=== PATIENT | male | born 1995 | race African-American/Black ===

== ENCOUNTER 2016-12-18 20:39 | Emergency (ER) | payer MEDICAID | END 2016-12-18 21:35 | disposition home or self-care (01) | LOC: CED 20:39 → CFTX 20:39 | DX: J02.0 Streptococcal pharyngitis (principal) | CPT/HCPCS: 87880; 96372; 99283; J0561 ==

== ENCOUNTER 2016-12-22 00:17 | Emergency (ER) | payer MEDICAID ==
[~2016-12-22] VITALS: Ht 177.8 cm; Wt 72.6 kg
== END 2016-12-22 02:11 | disposition home or self-care (01) ==
LOC: CED 00:17
DX: J02.0 Streptococcal pharyngitis (principal); F17.200 Nicotine dependence, unspecified, uncomplicated
CPT/HCPCS: 99283